=== PATIENT | male | born 1990 | race Caucasian/White ===

== ENCOUNTER 2021-10-05 11:50 | Emergency (ER) | payer BC ==
[~2021-10-05] VITALS: Ht 162.6 cm; Wt 97.7 kg
[~2021-10-05 11:50] MED LIST: LEXAPRO 10MG10 MG PO; NORCO 325 MG-51 TAB PO; PRIL40 PO; SEROQUEL 2525 MG/TAB PO
[2021-10-05 12:30] VITALS: TEMP 98.1
[2021-10-05 12:49] LABS: COLLECTION METHOD CLEAN CATCH
[2021-10-05 13:01] LABS: MUCOUS Present (NOT PRESENT); PH 8 (5-8); SQUAMOUS EPITHELIAL 0-2 /hpf (0-10); URINE APPEARANCE Hazy (CLEAR/HAZY); URINE BACTERIA None Seen (NONE SEEN); URINE BILIRUBIN Negative (NEGATIVE); URINE BLOOD Negative (NEGATIVE); URINE COLOR Amber (YELLOW); URINE GLUCOSE Negative (NEGATIVE); URINE KETONE Negative (NEGATIVE); URINE LEUKOCYTE ESTERASE Negative (NEGATIVE); URINE NITRATE Negative (NEGATIVE); URINE PROTEIN(semi-quant) 1+ (NEGATIVE); URINE RBC 0-2 /hpf (0-2); URINE UROBILINOGEN >=4.0 mg/dL (NEGATIVE)
[2021-10-05 13:13] LABS: HEMATOCRIT 50.6 % (42.0-52.0); MEAN CELL VOLUME 91 fl (80.0-100.0); MEAN CORPUSCULAR HEMOGLOBIN 33 pg (27.0-31.0); MEAN CORPUSCULAR HGB CONC 37 g/dl (33.0-37.0); MEAN PLATELET VOLUME 11.3 fl (7.4-10.4); PLATELET COUNT 268 K/mm3 (130-400); RED BLOOD COUNT 5.54 M/mm3 (4.20-5.60); REDCELL DISTRIBUTION WIDTH-CV 12.5 % (11.5-14.5)
[2021-10-05 13:17] LABS: HEMOGLOBIN 18.5 g/dl (13.5-18.0)
[2021-10-05 13:44] LABS: BAND 4 % (0-10); BASOPHIL 1 % (0-2); LYMPHOCYTE 18 % (20.0-51.0); NEUTROPHILS 70 % (42.0-75.2); PLATELET ESTIMATE NORMAL (NORMAL)
[2021-10-05 14:06] LABS: ALBUMIN 4.1 gm/dL (3.5-5.0); BILIRUBIN,TOTAL 2.4 mg/dL (0.2-1.2); CALCIUM 9.9 mg/dL (8.4-10.2); CREATININE, serum 1.16 mg/dL (0.72-1.25); TOTAL PROTEIN 7.3 gm/dL (6.2-8.1)
[2021-10-05 14:10] LABS: POTASSIUM 2.5 mmol/L (3.5-4.5)
[2021-10-05] MEDS ORDERED: ZOFRAN ODT4 MG PO (15:51)
[2021-10-05 15:56] VITALS: BP 118/85; PULSE 92
== END 2021-10-05 16:10 | disposition home or self-care (01) ==
LOC: COL.ER 11:50
PROVIDERS: Emergency Medicine; Physician Assistant
DX: K76.0 Fatty (change of) liver, not elsewhere classified (principal); E86.0 Dehydration; F10.10 Alcohol abuse, uncomplicated; K21.9 Gastro-esophageal reflux disease without esophagitis; D72.829 Elevated white blood cell count, unspecified; Z79.899 Other long term (current) drug therapy
CPT/HCPCS: J2405; J7030; Q9967

== ENCOUNTER 2022-02-17 12:38 | Outpatient (RCR) | payer OTHER ==
[~2022-02-17 12:38] MED LIST changes: +ZOFRAN ODT4 MG PO
== END 2022-02-19 ==
LOC: WSOH
DX: S20.222A Contusion of left back wall of thorax, initial encounter (principal); W19.XXXA Unspecified fall, initial encounter; K21.9 Gastro-esophageal reflux disease without esophagitis; Z90.49 Acquired absence of other specified parts of digestive tract; Y99.0 Civilian activity done for income or pay

== ENCOUNTER 2022-02-25 14:55 | Outpatient (RCR) | payer OTHER | END 2022-03-22 | disposition home or self-care (01) | LOC: WSOH | DX: S20.222D Contusion of left back wall of thorax, subsequent encounter (principal); W19.XXXD Unspecified fall, subsequent encounter; K21.9 Gastro-esophageal reflux disease without esophagitis; Z90.49 Acquired absence of other specified parts of digestive tract; Y99.0 Civilian activity done for income or pay ==

== ENCOUNTER 2022-05-09 14:52 | Outpatient (RCR) | payer OTHER | END 2022-05-22 | LOC: WSOH | DX: M54.9 Dorsalgia, unspecified (principal) ==

== ENCOUNTER 2023-12-12 07:03 | Observation (INO) | payer SELFPAY ==
[2023-12-12] VITALS (659 sets, daily range): BP systolic 120–169; BP diastolic 91–95; PULSE 70–95; TEMP 97.7–98.5; O2SAT 82–100
[~2023-12-12] VITALS: Ht 162.6 cm; Wt 83.6 kg
[2023-12-12] MEDS ORDERED: Ondansetron 4 MG/2 ML VIAL IV ONE (07:15)
[2023-12-12] MEDS ORDERED: LR 1,000 ML IV ONE (07:15)
[2023-12-12 07:21] LABS: BASO % 0.3 % (0.0-2.0); GRAN # 10.7 K/mm3 (1.4-6.5); GRAN % 79.5 % (42.2-75.2); HEMATOCRIT 48.1 % (42.0-52.0); HEMOGLOBIN 17.4 g/dl (13.5-18.0); LYMPH # 1.3 K/mm3 (1.2-3.4); LYMPH % 9.5 % (20.0-51.0); MEAN CELL VOLUME 93 fl (80.0-100.0); MEAN CORPUSCULAR HEMOGLOBIN 34 pg (27-31); MEAN CORPUSCULAR HGB CONC 36 g/dl (33.0-37.0); MEAN PLATELET VOLUME 10.6 fl (7.4-10.4); MONO # 1.4 K/mm3 (0.1-0.6); MONO % 10.3 % (1.7-9.3); PLATELET COUNT 357 K/mm3 (130-400); RED BLOOD COUNT 5.15 M/mm3 (4.20-5.60); REDCELL DISTRIBUTION WIDTH-CV 12.6 % (11.5-14.5)
[2023-12-12 07:36] LABS: ALBUMIN 4.6 gm/dL (3.5-5.0); BILIRUBIN,TOTAL 1.5 mg/dL (0.2-1.2); CALCIUM 10.5 mg/dL (8.4-10.2); CREATININE, serum 2.04 mg/dL (0.72-1.25); TOTAL PROTEIN 8.5 gm/dL (6.2-8.1)
[2023-12-12] MEDS ORDERED: Potassium Chloride 100 ML IV ONE (07:45)
[2023-12-12] MEDS ORDERED: NS 1,000 ML IV SCH ×2 (07:45→12:15)
[2023-12-12] MEDS ORDERED: PAMELOR 25MG25 MG PO (08:21)
[2023-12-12] MEDS ORDERED: PROMETHAZINE12.5 M5 PO (08:22)
[2023-12-12] MEDS ORDERED: PLAVIX 75MG TAB75 MG PO (08:22)
[2023-12-12] MEDS ORDERED: CYMBALTA 60MG60 MG PO (08:23)
[2023-12-12] MEDS ORDERED: ASPIRIN 81M81 MG/TA2 PO (08:25)
[2023-12-12] MEDS ORDERED: DESYREL 50MG50 MG PO (08:26)
[2023-12-12] MEDS ORDERED: PROTONIX20 MG PO (08:27)
[2023-12-12] MEDS ORDERED: FOLBEE PLUS1 TAB (08:29)
[2023-12-12 09:03] LABS: PH 7.5 (5.0-8.5); URINE APPEARANCE CLEAR (CLEAR/HAZY); URINE BLOOD NEGATIVE (NEGATIVE); URINE COLOR Dark Yellow (YELLOW); URINE GLUCOSE NEGATIVE (NEGATIVE); URINE KETONE 1+ (NEGATIVE); URINE NITRATE NEGATIVE (NEGATIVE); URINE PROTEIN(semi-quant) 2+ (NEGATIVE)
--- NOTE | 2023-12-12 09:20 | NUR ---
PATIENT ARRIVED WITH ER STAFF VIA COT TO ICU AT THIS TIME. PATIENT NOT IN DISTRESS UPON ARRIVAL.
[2023-12-12 09:34] LABS: COLLECTION METHOD CLEAN CATCH; SQUAMOUS EPITHELIAL NONE SEEN /hpf (0-10); URINE RBC NONE SEEN /hpf (0-2); URINE WBC 0-2 /hpf (0-2)
[2023-12-12 09:35] LABS: URINE BACTERIA RARE /hpf (NONE SEEN)
[2023-12-12 10:46] LABS: ALBUMIN 3.9 gm/dL (3.5-5.0); BILIRUBIN,TOTAL 1.2 mg/dL (0.2-1.2); CALCIUM 9.6 mg/dL (8.4-10.2); CREATININE, serum 1.48 mg/dL (0.72-1.25); TOTAL PROTEIN 7.2 gm/dL (6.2-8.1)
[2023-12-12 10:50] LABS: POTASSIUM 2.7 mmol/L (3.5-4.5)
[2023-12-12] MEDS ORDERED: LORazepam 1 MG TAB PO PRN (11:30)
[2023-12-12] MEDS ORDERED: *Potassium Replacement Protocol MC SCH (11:30)
[2023-12-12] MEDS ORDERED: Mag/Al Hydrox/Simeth Susp 30 ML CUP PO PRN (11:30)
[2023-12-12] MEDS ORDERED: LORazepam 2 MG/ML 1 ML VIAL IV PRN (11:30)
[2023-12-12] MEDS ORDERED: Nicotine 14 MG DAILY PATCH TD SCH (12:03)
[2023-12-12] MEDS ORDERED: ALPRAZolam 0.25 MG TAB PO PRN (12:15)
[2023-12-12] MEDS ORDERED: Potassium Chloride 100 ML IV SCH (14:00)
[2023-12-12 15:00] LABS: TRICYCLIC ANTIDEPRESS URINE NEGATIVE (NEGATIVE)
[2023-12-12] MEDS ORDERED: DULoxetine 60 MG CAP PO SCH (15:24)
[2023-12-12] MEDS ORDERED: Clopidogrel 75 MG TAB PO SCH (15:24)
[2023-12-12] MEDS ORDERED: Ondansetron 4 MG/2 ML VIAL IV PRN (16:15)
[2023-12-12] MEDS ORDERED: Multivitamin TAB PO SCH (17:00)
[2023-12-12] MEDS ORDERED: traZODone 50 MG TAB PO SCH (21:00)
[2023-12-13] VITALS (748 sets, daily range): BP systolic 132–202; BP diastolic 89–116; PULSE 62–110; TEMP 98–99; O2SAT 87–100
[2023-12-13] MEDS ORDERED: Heparin 5,000 UNITS/ML 1 ML VIAL SQ SCH
[2023-12-13 05:22] LABS: BASO # 0.1 K/mm3 (0.0-0.2); BASO % 0.6 % (0.0-2.0); EOS # 0.1 K/mm3 (0.0-0.7); EOS % 0.6 % (0.0-4.0); GRAN # 5.8 K/mm3 (1.4-6.5); GRAN % 65.8 % (42.2-75.2); HEMATOCRIT 40.5 % (42.0-52.0); LYMPH # 2.1 K/mm3 (1.2-3.4); LYMPH % 23.9 % (20.0-51.0); MEAN CELL VOLUME 96 fl (80.0-100.0); MEAN CORPUSCULAR HGB CONC 35 g/dl (33.0-37.0); MEAN PLATELET VOLUME 10.3 fl (7.4-10.4); MONO # 0.8 K/mm3 (0.1-0.6); MONO % 8.8 % (1.7-9.3); RED BLOOD COUNT 4.22 M/mm3 (4.20-5.60); REDCELL DISTRIBUTION WIDTH-CV 12.6 % (11.5-14.5)
[2023-12-13 05:31] LABS: HEMOGLOBIN 14.3 g/dl (13.5-18.0); MEAN CORPUSCULAR HEMOGLOBIN 34 pg (27-31); PLATELET COUNT 228 K/mm3 (130-400)
[2023-12-13 05:34] LABS: ALBUMIN 3.2 gm/dL (3.5-5.0); BILIRUBIN,TOTAL 1.6 mg/dL (0.2-1.2); CALCIUM 8.8 mg/dL (8.4-10.2); CREATININE, serum 0.84 mg/dL (0.72-1.25); POTASSIUM 3.4 mmol/L (3.5-4.5); TOTAL PROTEIN 5.9 gm/dL (6.2-8.1)
--- NOTE | 2023-12-13 07:00 | NUR ---
REPORT RECEIVED FROM REGINA OLIVEROS. PT RESTING IN BED, VSS ON ROOM AIR. NS INFUSING TO R UPPER ARM PICC ORDERED. PT IS ALERT AND ORIENTED. DENIES ANY PAIN BUT DOES COMPLAIN OF SLIGHT NAUSEA. CALL LIGHT IN REACH.
[2023-12-13] MEDS ORDERED: Thiamine 100 MG TAB PO SCH (09:00)
[2023-12-13] MEDS ORDERED: Folic Acid 1 MG TAB PO SCH (09:00)
--- NOTE | 2023-12-13 10:46 | NUR ---
Staff Mine Warfare Officer met with patient to discuss discharge planning. Patient lives in [place], [place] with his , Amanda (ph#[phone]) who is at bedside. Patient sees SHAHIDA Acosta at [facility] for primary care and gets his medications from [facility]. Patient does not use any DME and is independent with ADLS. Patient is employed at [employer]. SW inquired about DPOA-[facility]. Amanda advised they have the paperwork at home and just need to have it notarized. Patient plans to return home at time of discharge. Discharge Plan; Home
[2023-12-13] MEDS ORDERED: Promethazine 25 MG TAB PO PRN (11:30)
--- NOTE | 2023-12-13 12:51 | NUR ---
Initial visit; Patient and his thanked for looking in on him and offering God's blessings and inquired if she could help him in any way. He responded that he didn't think so. Travel Journalist asked if she could keep him in her prayers he responded by saying, "Yes, that would be ok." has Aidan on her prayer list.
--- NOTE | 2023-12-13 15:24 | NUR ---
ASSESSMENT COMPLETE. ORIENTED PATIENT TO ROOM AND PROVIDED BASIN AT HIS REQUEST HE IS CURRENTLY REPORTING NAUSEA. REVIEWED HOME MEDICATION LIST. UPON EXITING ROOM, PATIENT WAS RESTING QUIETLY IN BED WITH LIGHTS OFF.
--- NOTE | 2023-12-13 18:40 | NUR ---
PATIENT RESTING IN BED WITH TV OFF WITH NO FAMILY PRESENT WITH NO ACUTE DISTRESS NOTED. PATIENT ON ROOM AIR. INT TO LEFT HAND INTACT WITH NO COMPLICATIONS NOTED. NS INFUSING INTO RIGHT UPPER ARM DOUBLE LUMEN PICC LINE WITH NO COMPLICATIONS NOTED. PAITENT TRAY IN ROOM. TELEMETRY INTACT. PATIENT DENIES ANY NEEDS AT THIS TIME. PATIENT CARE ASSUMED FROM [facility] AT THIS TIME. BED IN LOW POSITION WITH WHEELS LOCKED WITH RAILS UP X3 AND CALL LIGHT WITHIN REACH.
--- NOTE | 2023-12-13 21:00 | NUR ---
PATIENT RESTING IN BED LYING ON BACK WITH TV OFF WITH NO FAMILY PRESENT WITH NO ACUTE DISTRESS NOTED. PATIENT ON ROOM AIR. INT TO LEFT HAND INTACT WITH NO COMPLICATIONS NOTED. NS INFUSING INTO RIGHT UPPER ARM PICC LINE WITH NO COMPLICATIONS NOTED. PATIENT C/O NAUSEA. PO PHENERGAN GIVEN PER MD ORDER. ASSESSMENT AND MEDICATION ADMINISTRATION COMPLETED AT THIS TIME. PATIENT TOLERATED WELL. PATIENT DENIES ANY NEEDS. BED IN LOW POSITION WITH WHEELS LOCKED WITH RAILS UP X3 AND CALL LIGHT WITHIN REACH.
[2023-12-14] VITALS: BP_SYST 132
[2023-12-14 03:17] VITALS: BP 136/87; PULSE 84; TEMP 97.9
[2023-12-14 04:15] VITALS: BP_SYST 136
[2023-12-14 06:51] LABS: BASO # 0.1 K/mm3 (0.0-0.2); BASO % 0.5 % (0.0-2.0); EOS # 0.1 K/mm3 (0.0-0.7); EOS % 0.7 % (0.0-4.0); GRAN # 8.6 K/mm3 (1.4-6.5); GRAN % 78.3 % (42.2-75.2); HEMATOCRIT 41.6 % (42.0-52.0); HEMOGLOBIN 14.6 g/dl (13.5-18.0); LYMPH # 1.5 K/mm3 (1.2-3.4); LYMPH % 13.2 % (20.0-51.0); MEAN CELL VOLUME 97 fl (80.0-100.0); MEAN CORPUSCULAR HEMOGLOBIN 34 pg (27-31); MEAN CORPUSCULAR HGB CONC 35 g/dl (33.0-37.0); MEAN PLATELET VOLUME 10.6 fl (7.4-10.4); MONO # 0.8 K/mm3 (0.1-0.6); MONO % 6.9 % (1.7-9.3); PLATELET COUNT 248 K/mm3 (130-400); RED BLOOD COUNT 4.31 M/mm3 (4.20-5.60)
[2023-12-14 07:13] VITALS: BP 142/92; PULSE 80; TEMP 98.3
[2023-12-14 07:25] LABS: CALCIUM 8.8 mg/dL (8.4-10.2); CREATININE, serum 0.75 mg/dL (0.72-1.25); POTASSIUM 3.2 mmol/L (3.5-4.5); TOTAL PROTEIN 5.6 gm/dL (6.2-8.1)
[2023-12-14] MEDS ORDERED: Potassium Chloride 100 ML IV SCH (07:45)
--- NOTE | 2023-12-14 08:46 | NUR ---
ASSESSMENT COMPLETE. ADARSH IS RESTING COMFORTABLY IN BED DENYING ANY NAUSEA OR PAIN AT TIME OF ASSESSMENT. MORNING MEDICATIONS GIVEN AND EDUCATED PATIENT ON THE NEED FOR POTASSIUM REPLACEMENT VIA HIS PICC LINE MORNING POTASSIUM LEVEL WAS 3.2, HE EXPRESSED UNDERSTANDING OF THIS AND AGREED TO PLAN OF CARE. STATES HIS ROYAL WILL BE COMING BY LATER TODAY.
[2023-12-14] MEDS ORDERED: K-TAB20 PO (08:57)
[2023-12-14 09:11] VITALS: BP_SYST 142
--- NOTE | 2023-12-14 10:51 | NUR ---
germination worker attended clinical rounding for this patient with the interdisciplinary team. SW was notified patient is medically ready for discharge today.
[2023-12-14 11:16] VITALS: BP 139/86; PULSE 106; TEMP 97.6
--- NOTE | 2023-12-14 12:15 | NUR ---
DISCHARGE INSTRUCTIONS PROVIDED AND DISCUSSED WITH PATIENT. REVIEWED CARE INSTRUCTIONS FOR THE SITE OF HIS PICC LINE POST-REMOVAL WELL SIGNS TO MONITOR FOR AND WHEN TO SEEK MEDICAL ATTENTION. EDUCATED ON NEW MEDICATIONS. DISCONTINUED IV ACCESS. ADVISED TO LET STAFF KNOW WHEN HIS ARRIVES FOR DISMISSAL.
== END 2023-12-14 12:35 | disposition home or self-care (01) ==
LOC: COL.ER 07:03 → ICU 08:42 → MEDICAL 12-13 14:44
PROVIDERS: Family Medicine; Nurse Practitioner Family; ADMIT Hospitalist
DX: E87.3 Alkalosis (principal); N17.9 Acute kidney failure, unspecified; D72.829 Elevated white blood cell count, unspecified; D75.1 Secondary polycythemia; Z86.73 Personal history of transient ischemic attack (TIA), and cerebral infarction without residual deficits; Z79.82 Long term (current) use of aspirin; Z79.02 Long term (current) use of antithrombotics/antiplatelets; K21.9 Gastro-esophageal reflux disease without esophagitis; F10.90 Alcohol use, unspecified, uncomplicated; F41.9 Anxiety disorder, unspecified; G47.00 Insomnia, unspecified; R11.15 Cyclical vomiting syndrome unrelated to migraine; R91.8 Other nonspecific abnormal finding of lung field; E87.6 Hypokalemia; E83.42 Hypomagnesemia; R47.01 Aphasia; K75.81 Nonalcoholic steatohepatitis (NASH); F17.220 Nicotine dependence, chewing tobacco, uncomplicated
CPT/HCPCS: C1751; G0378; J1644; J2060; J2405; J3475; J3480; J7030; J7120

== ENCOUNTER 2024-05-27 19:38 | Emergency (ER) | payer BC ==
[~2024-05-27] VITALS: Ht 162.6 cm; Wt 81.8 kg
[~2024-05-27 19:38] MED LIST changes: +APRESOLINE 25MG25 MG PO; +ASPIRIN 81M81 MG/TA2 PO; +CYMBALTA 60MG60 MG PO; +DESYREL 50MG50 MG PO; +FOLBEE PLUS1 TAB; +K-DUR20 MEQ PO; +K-TAB20 PO; +MAG-OX 400400 MG/TAB PO; +NATURE'S BLEND100 M2 PO; +PAMELOR 25MG25 MG PO; +PLAVIX 75MG TAB75 MG PO; +PROMETHAZINE12.5 M5 PO; +PROTONIX20 MG PO; +QUALITY CHOICE1 T22 PO; +REGLAN 5MG T5 MG/TAB PO; +ZOFRAN 4MG T4 MG/TAB PO
[2024-05-27 19:49] VITALS: TEMP 98.5
[2024-05-27] MEDS ORDERED: droPERidol 2.5 MG/ML 2 ML VIAL IV ONE (20:15)
[2024-05-27] MEDS ORDERED: NS 1,000 ML IV ONE (20:15)
[2024-05-27 20:31] LABS: HEMOGLOBIN 17.8 g/dl (13.5-18.0); MEAN CELL VOLUME 90 fl (80.0-100.0); MEAN CORPUSCULAR HEMOGLOBIN 34 pg (27-31); MEAN CORPUSCULAR HGB CONC 38 g/dl (33.0-37.0); PLATELET COUNT 316 K/mm3 (130-400); RED BLOOD COUNT 5.25 M/mm3 (4.20-5.60); REDCELL DISTRIBUTION WIDTH-CV 12.2 % (11.5-14.5)
[2024-05-27 20:32] LABS: ALANINE AMINOTRANSFERASE 58 U/L (0-55); ALBUMIN 3.9 g/dL (3.5-5.0); ALCOHOL(ethanol),MEDICAL 122 mg/dL (0-10); ALKALINE PHOSPHATASE 163 U/L (40-150); AST,SGOT 95 U/L (5-34); BILIRUBIN,TOTAL 0.8 mg/dL (0.2-1.2); BLOOD UREA NITROGEN 32 mg/dL (9-21); C-REACTIVE PROTEIN 1.08 mg/dL (0.00-0.50); CALCIUM 10.4 mg/dL (8.4-10.2); CREATININE, serum 1.92 mg/dL (0.72-1.25); GLUCOSE 201 mg/dL (70-99); LIPASE 219 U/L (8-78); SODIUM 123 mEq/L (136-145); TOTAL PROTEIN 8.2 g/dl (6.2-8.1)
[2024-05-27] MEDS ORDERED: LR 1,000 ML IV ONE (20:45)
[2024-05-27 20:47] LABS: EOSINOPHIL 1 % (0-4); LYMPHOCYTE 7 % (20.0-51.0); NEUTROPHILS 80 % (42.0-75.2); PLATELET ESTIMATE NORMAL (NORMAL)
[2024-05-27 20:54] LABS: CHLORIDE < 53 mEq/L (98-107)
[2024-05-27] MEDS ORDERED: Potassium Chloride 100 ML IV ONE ×2 (21:00→22:30)
[2024-05-27] MEDS ORDERED: Promethazine 50 MG/ML 1 ML VIAL IM ONE (21:15)
[2024-05-27] MEDS ORDERED: LORazepam 2 MG/ML 1 ML VIAL IV ONE (21:30)
[2024-05-27] MEDS ORDERED: Iohexol 300 - 100 ML VIAL IV ONE (21:49)
[2024-05-27] MEDS ORDERED: NS 50 ML IV SCH (21:51)
[2024-05-27] MEDS ORDERED: NS 1,000 ML IV SCH (22:30)
[2024-05-27 22:55] VITALS: BP 98/73; PULSE 96
== END 2024-05-27 22:55 | disposition short-term general hospital (02) ==
LOC: COL.ER 19:38
PROVIDERS: Nurse Practitioner
DX: S93.601A Unspecified sprain of right foot, initial encounter (principal); K92.0 Hematemesis; E87.6 Hypokalemia; E87.1 Hypo-osmolality and hyponatremia; F10.239 Alcohol dependence with withdrawal, unspecified; N17.9 Acute kidney failure, unspecified; X58.XXXA Exposure to other specified factors, initial encounter; Y90.6 Blood alcohol level of 120-199 mg/100 ml
CPT/HCPCS: J1790; J2060; J2550; J3480; J7030; J7120; Q9967